=== PATIENT | female | born 1950 | race Caucasian/White ===

== ENCOUNTER 2024-02-05 16:04 | Emergency (ER) | payer MEDICARE, SELFPAY ==
[2024-02-05 16:07] VITALS: BP 169/91; PULSE 83; TEMP 36.8; O2SAT 97; BMI 34.2
--- NOTE | 2024-02-05 17:46 | ED.SKABFB1 ---
HPI - Skin/Abscess/Foreign Bdy General Chief complaint: Skin/Abscess/Foreign Body Stated complaint: Bites on back Time Seen by Provider: 02/05/24 17:46 Source: patient Mode of arrival: walk-in History of Present Illness HPI narrative: This patient is here for evaluation of a skin lesion. She thinks she may have been bit or stung by something. This happened several days ago. [place] a park and felt something irritating her and she reached back and brushed it away but never actually saw the culprit insect. She thought it would go away but it really has not she is not on any antibiotics the area of redness and discomfort is getting larger but she says it still also itches. She has no other systemic reaction hives swelling of the lips tongue mouth. She has no wheezing in her lungs. Related Data Allergies Allergy/AdvReac Type Severity Reaction Status Date / Time codeine Allergy Severe Hives Verified 02/05/24 16:12 morphine Allergy Severe swelling Verified 02/05/24 16:12 Exam Narrative Exam Narrative: Awake alert very pleasant no apparent distress. The only area of skin manifestation is in the posterior lateral left thoracic area approximately ribs 4 and 5 just below the brassiere line. There is 2 small little vasculitis areas consistent with insect bite and then there is surrounding erythema that is approximately 7 x 5 cm. It is not particularly tender but it does itch. There are surrounding skin otherwise completely normal. There is no other clinical findings on exam today. Constitutional Vital Signs, click to edit/add: Last Vital Signs Temp 98.3 F 02/05/24 16:07 Pulse 83 02/05/24 16:07 Resp 18 02/05/24 16:07 BP 169/91 H 02/05/24 16:07 Pulse Ox 97 02/05/24 16:07 O2 Del Method Room Air 02/05/24 16:07 Course Vital Signs Vital signs: Vital Signs Temperature 98.3 F 02/05/24 16:07 Pulse Rate 83 02/05/24 16:07 Respiratory Rate 18 02/05/24 16:07 Blood Pressure 169/91 H 02/05/24 16:07 Pulse Oximetry 97 02/05/24 16:07 Oxygen Delivery Method Room Air 02/05/24 16:07 Temperature 98.3 F 02/05/24 16:07 Pulse Rate 83 02/05/24 16:07 Respiratory Rate 18 02/05/24 16:07 Blood Pressure 169/91 H 02/05/24 16:07 Pulse Oximetry 97 02/05/24 16:07 Oxygen Delivery Method Room Air 02/05/24 16:07 MDM - Skin/Abscess/Foreign Bdy MDM Narrative Medical decision making narrative: These findings are most consistent with an insect bite that is developed an early secondary infection. We will place her on Keflex. She can also take some Benadryl for itching. Follow-up with her primary care doctor as necessary Discharge Plan Discharge Stand Alone Forms: Work/School Release, Portal Instructions Chief Complaint: Skin/Abscess/Foreign Body Clinical Impression: Insect bite Patient Disposition: Home, Self-Care Time of Disposition Decision: 17:49 Print Language: Occitan Additional Instructions: Keflex for 7 days. May use Benadryl for itching. Cold compresses Referrals: Niki Vann DO [Primary Care Provider] - 1 week
[2024-02-05] MEDS: CEPHALEXIN 500 MG CAPSULE PO (17:57)
== END 2024-02-05 18:01 | disposition home or self-care (01) ==
PROVIDERS: Emergency Provider Emergency Medicine Emergency Medical Services; PCP Family Medicine
DX: S20.469A Insect bite (nonvenomous) of unspecified back wall of thorax, initial encounter (principal); L08.9 Local infection of the skin and subcutaneous tissue, unspecified; W57.XXXA Bitten or stung by nonvenomous insect and other nonvenomous arthropods, initial encounter
CPT/HCPCS: 99283